=== PATIENT | female | born 1970 ===

== ENCOUNTER → 2018-03-04 | Outpatient (REF) | LOC: M SMT 10:53 | DX: Z00.00 Encounter for general adult medical examination without abnormal findings (principal) ==

== ENCOUNTER → 2019-08-18 | Outpatient (REF) | payer OTHER ==
[2019-08-19 13:36] LABS: MALB URINE SIEMENS 28.9 MG/L; MAU/CREAT RATIO 9.1 MCG/MG (0.0-30.0)
== END ==
LOC: M LAB REF 11:26
PROVIDERS: ATTEND Nurse Practitioner Family
DX: E11.65 Type 2 diabetes mellitus with hyperglycemia (principal)